=== PATIENT | male | born 1980 | race Caucasian/White ===

== ENCOUNTER 2019-05-19 11:00 | Emergency (ER) | payer SELFPAY ==
[~2019-05-19] VITALS: Ht 175.3 cm; Wt 95.0 kg
[2019-05-19] MEDS ORDERED: AZITHROMYCIN 500 MG TABLET PO ONE (12:00)
[2019-05-19] MEDS ORDERED: CEFTRIAXONE 250 MG IM ONE (12:00)
--- NOTE | 2019-05-19 12:20 | NUR ---
CHIN STRAP SEWER: PT TO ROOM FROM [facility]
[2019-05-19] MEDS ORDERED: CEFTRIAXONE 250 MG ONE (12:26)
[2019-05-19] MEDS ORDERED: AZITHROMYCIN 500 MG TABLET ONE (12:26)
[2019-05-19] MEDS ORDERED: THIAMINE 100MG TABLET PO ONE (13:00)
[2019-05-19 13:03] LABS: BASOPHILS # (AUTO) 0.06 x10^3/uL (0-0.1); BASOPHILS % (AUTO) 0 % (0-1); EOSINOPHILS # (AUTO) 0.15 x10^3/uL (0-0.4); EOSINOPHILS % (AUTO) 1 % (1-7); LYMPHOCYTES % (AUTO) 10 % (22-44); MD NO; MEAN CORPUSCULAR HEMOGLOBIN 31.2 pg (27.5-34.5); MEAN CORPUSCULAR HGB CONC 32.6 g/dL (33.2-36.2); MEAN CORPUSCULAR VOLUME 95.8 fL (81-97); MEAN PLATELET VOLUME 8.1 fL (7.4-10.4); MONOCYTES # (AUTO) 0.85 x10^3/uL (0.2-0.8); MONOCYTES % (AUTO) 6 % (2-9); NEUTROPHILS # (AUTO) 12.21 x10^3/uL (1.8-6.8); NEUTROPHILS % (AUTO) 83 % (42-75); PLATELET COUNT 293 x10^3/uL (130-400); RED BLOOD COUNT 5.04 x10^6/uL (4.38-5.82); RED CELL DISTRIBUTION WIDTH 14.6 % (9.4-14.8)
[2019-05-19 13:14] LABS: ALANINE AMINOTRANSFERASE 59 U/L (12-78); ALBUMIN 3.9 g/dL (3.4-5.0); ANION GAP 10 mmol/L (5-15); CALCIUM 8.9 mg/dL (8.5-10.1); CHLORIDE 104 mmol/L (98-107); CREATININE 0.64 mg/dL (0.7-1.3)
[2019-05-19 13:16] LABS: ALKALINE PHOSPHATASE 133 U/L (45-117); BILIRUBIN,TOTAL 0.5 mg/dL (0.2-1.0); TOTAL PROTEIN 7.6 g/dL (6.4-8.2)
--- NOTE | 2019-05-19 13:18 | NUR ---
PT BIB EMS FOR ETOH. PT STATES HE DRANK 1/2 GALLON, AND IS HERE FOR DETOX. SOILED CLOTHES. VS STABLE. GAIT STEADY. FINAL INSPECTOR SHUTTLE APPLIED. STATES HX OF WITHDRAWAL SEIZURES.
--- NOTE | 2019-05-19 13:49 | NUR ---
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 PT SLEEPING
[2019-05-19 15:23] VITALS: BP 114/74
--- NOTE | 2019-05-19 15:23 | NUR ---
TASK RN: PT REPOSITIONED ON GURCLEARWATER FOR COMFORT. NADN. IBARRA.
--- NOTE | 2019-05-19 16:29 | NUR ---
Patient/Caregiver given discharge instructions and they have confirmed that they understand the instructions. Patient ambulatory with steady gait. Given new pants.
== END 2019-05-19 16:31 | disposition home or self-care (01) ==
LOC: ED 16:05
DX: F10.129 Alcohol abuse with intoxication, unspecified (principal); D72.829 Elevated white blood cell count, unspecified
CPT/HCPCS: 36415; 70450; 80053; 85025; 93005; 99284